=== PATIENT | female | born 1995 | race Caucasian/White ===

== ENCOUNTER 2023-07-17 07:09 | Day surgery (SDC) | payer OTHER ==
[~2023-07-17] VITALS: Ht 165.1 cm; Wt 70.5 kg
[2023-07-17] MEDS ORDERED: Ondansetron 4 MG/2 ML VIAL IV PRN (08:00)
[2023-07-17] MEDS ORDERED: LR 1,000 ML IV SCH (08:30)
[2023-07-17] MEDS ORDERED: MIRALAX PA17 GM/Dose PO (08:45)
[2023-07-17] MEDS ORDERED: LINZESS72 MCG PO (08:45)
[2023-07-17] MEDS ORDERED: Lidocaine PF 2% (20 MG/ML) 5 ML VIAL ONE (08:50)
[2023-07-17 09:00] VITALS: BP 111/75; PULSE 75; TEMP 98.2
[2023-07-17 09:35] VITALS: BP 96/55; PULSE 65; TEMP 98.1
--- NOTE | 2023-07-17 09:35 | NUR ---
PATIENT AMBULATED TO CHAIR WITH STEADY GAIT, ASSIST OF 2. PATIENT IS DROWSY, AROUSES TO NAME. DENIES PAIN, NAUSEA AND SHORTNESS OF BREATH. BREATHING REGULAR AND UNLABORED ON ROOM AIR. SKIN WARM AND DRY. IV IN PLACE. NURSE HANDOFF COMPLETED IN ROOM. SEE CHART FOR VITAL SIGNS. PATIENT RESTING IN CHAIR, CALL LIGHT IN REACH. SPOUSE, HANSA, PRESENT IN ROOM.
[2023-07-17 09:45] VITALS: BP 93/54; PULSE 54
--- NOTE | 2023-07-17 09:55 | NUR ---
PATIENT ALERT AND ORIENTED X3. DENIES PAIN, NAUSEA AND SHORTNESS OF BREATH. MET WITH PATIENT AND SPOUSE IN ROOM TO DISCUSS PROCEDURE. PATIENT HAD APPLE JUICE AND APPLESAUCE. BOTH FOOD AND DRINK TOLERATED WELL, NO DYSPHAGIA.
[2023-07-17 10:00] VITALS: BP 100/69; PULSE 53
[2023-07-17 10:12] VITALS: BP 109/70; PULSE 62
--- NOTE | 2023-07-17 10:20 | NUR ---
1012: DISCHARGE TEACHING COMPLETED WITH PRINTED EDUCATION AND INSTRUCTIONS SENT HOME WITH PATIENT. PATIENT VERBALIZED UNDERSTANDING OF TEACHING. 1013: IV REMOVED. GAUZE AND COBAN PLACED OVER SITE. 1020: PATIENT DISCHARGED HOME WITH [facility].
== END 2023-07-17 10:20 | disposition home or self-care (01) ==
LOC: SDCO 07:09
DX: K59.04 Chronic idiopathic constipation (principal)
CPT/HCPCS: J2704; J7120